=== PATIENT | female | born 2005 | race Asian ===

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

== ENCOUNTER 2023-07-26 15:28 | Inpatient (IN) ==
[2023-07-26 17:57] LABS: ABS Eosinophils 0.1 10^3/uL (0.0-0.5); ABS Lymphocytes 1.6 10^3/uL (1.0-4.8); ABS Monocytes 0.4 10^3/uL (0.0-0.9); ABS Neutrophils 5.7 10^3/uL (1.5-7.6); Eosinophil % 0.7 %; Hematocrit 40.3 % (35-45); Hemoglobin 13.5 g/dL (11.5-14.3); Lymphocyte % 20.5 %; Mean Corpuscular Hemoglobin 28.9 pg (27-33); Mean Corpuscular Hgb Conc 33.4 g/dL (31-36); Mean Corpuscular Volume 86.6 fL (80-97); Mean Platelet Volume 8.8 fL (7.5-11.2); Platelet Count 214 10^3/uL (150-450); Red Blood Count 4.65 10^6/uL (3.63-4.92); Red Cell Distribution Width 13.1 % (12-17); White Blood Count 7.8 10^3/uL (3.8-11.8)
[2023-07-26 18:13] LABS: Albumin 4.4 g/dL (3.2-5.2); Anion Gap 7 mmol/L (2-16); CO2 Carbon Dioxide 22 mmol/L (22-32); Calcium 9.2 mg/dL (8.6-10.3); Chloride 107 mmol/L (101-111); Potassium 3.6 mmol/L (3.5-5.0); Sodium 136 mmol/L (135-145); Total Bilirubin 0.5 mg/dL (0.2-1.0)
[2023-07-26 18:15] LABS: HCG Pregnancy < 0.60 mIU/mL
[2023-07-26 18:19] LABS: ALT 8 U/L (7-52); AST 12 U/L (13-39); Albumin/Globulin Ratio 1.5 (1-3); Alkaline Phosphatase 53 U/L (35-149); Blood Urea Nitrogen 13 mg/dL (6-24); Creatinine, Serum 0.64 mg/dL (0.51-0.95); Glucose 138 mg/dL (70-100); Total Protein 7.4 g/dL (6.4-8.9); eGFR CKD-EPI 130.5 (>60)
[2023-07-26 18:50] LABS: Acetaminophen < 15 mcg/mL; Alcohol, S < 13 mg/dL (<13); Salicylate < 2.50 mg/dL (<30)
[2023-07-26 18:59] LABS: TSH Ultra Thyroid Stim Horm 0.53 mcIU/mL (0.34-5.60)
[2023-07-26 19:11] LABS: Urine Benzodiazepine Screen None Detected (None Detect); Urine Cannabinoids Screen None Detected (None Detect); Urine Opiates Screen None Detected (None Detect)
[2023-07-26] MEDS ORDERED: Al Hydrox/Mg Hydrox/Simet LIQ 30 ML UDC PO PRN (19:47)
[2023-07-27] MEDS: Vitamin THERAPEUTIC TAB PO SCH (11:42)
[2023-07-28] MEDS: Vitamin THERAPEUTIC TAB PO SCH (08:45)
[2023-07-29] MEDS: Vitamin THERAPEUTIC TAB PO SCH (08:42)
[2023-07-29] MEDS ORDERED: DULoxetine DR 20 mg CAP PO SCH (09:00)
[2023-07-30] MEDS: Vitamin THERAPEUTIC TAB PO SCH (09:59)
[2023-07-31] MEDS: Vitamin THERAPEUTIC TAB PO SCH (08:55)
[2023-07-31 11:13] VITALS: BP 116/71
[2023-08-01] MEDS ORDERED: Influenza vaccine *QUAD* *2023-24* 0.5 ML SYRINGE IM ONE (09:00)
== END 2023-07-31 18:10 | disposition home or self-care (01) | DRG 882 ==
LOC: ED 15:28 → BSU 19:17 → ED 19:55
PROVIDERS: ADMIT Psychiatry & Neurology Psychiatry; ATTEND Psychiatry & Neurology Psychiatry